=== PATIENT | male | born 1985 | race Caucasian/White ===

== ENCOUNTER → 2016-04-06 | Outpatient (CLI) | payer OTHER ==
--- NOTE | 2016-04-06 10:44 | KCIC ---
PROCEDURE MR of the right wrist HISTORY Right wrist pain. No swelling. Fell 2 months ago. Limited movement. COMPARISON None TECHNIQUE Standard noncontrast images are obtained. FINDINGS Triangular fibrocartilage is intact. Alignment at the distal radioulnar joint is maintained. Extensor carpi ulnaris tendon intact Other extensor compartments unremarkable Flexor tendons unremarkable. Median nerve unremarkable No evidence of scapholunate or lunotriquetral ligament tear. Mild degenerative signal and thickening within the membranous and anterior bands of the scapholunate ligament. Note there is mild dorsal tilt of the lunate. Mild cystic degeneration or erosion of the lateral lunate at the scapholunate ligament attachment. No bone lesion. No acute fracture. No significant joint effusion. There is a tiny fluid signal pocket posterior to the lunocapitate joint compatible with a tiny ganglion, up to 5 millimeter long axis. IMPRESSION 1. No evidence of internal derangement or acute abnormality. 2. Mild scapholunate ligament degeneration but without evidence of a tear. 3. Tiny soft tissue cyst or ganglion posterior to the lunocapitate joint. Electronically signed by: Rod Palomino MD (Apr 06, 2016 10:43:24)
== END | disposition home or self-care (01) ==
LOC: KCIC MRI 08:30
PROVIDERS: ATTEND Physician Assistant
DX: M25.531 Pain in right wrist (principal)
CPT/HCPCS: 73221